=== PATIENT | male | born 1950 | race Caucasian/White ===

== ENCOUNTER 2016-12-01 03:08 | Emergency (ER) | payer MEDICARE ==
[~2016-12-01] VITALS: Ht 177.8 cm; Wt 116.8 kg
[~2016-12-01 03:08] MED LIST: CENTTAB47 PO; COUM10TA PO; COUM1TAB17 PO; COUM7.5T PO; HYDR25TAB PO; MILKSUS PO; MIRA3350 PO; NICO2GUM8 PO; PERC5TAB12 PO; SENO8.6T5 PO; TRAM50TA2 PO; TUMS500C PO; TYLE325T5 PO; VITA-110 PO; VITA100066 PO
[2016-12-01] MEDS ORDERED: FORT500T3 PO (03:22)
[2016-12-01] MEDS ORDERED: ATOR1TAB19 PO (03:22)
[2016-12-01] MEDS ORDERED: METOCLOPRAMIDE INJ 10MG/2ML VIAL (J2765) IV ONE (05:00)
[2016-12-01] MEDS ORDERED: MORPHINE 4 MG/ML 1ML SYRINGE IV ONE (05:00)
[2016-12-01 05:08] LABS: BASO % 0.6 % (0.0-1.0); EOS # 0.3 K/mm3 (0.0-0.50); EOS % 4.1 % (0.0-3.0); LARGE UNSTAINED CELL # 0.2 K/mm3 (0.0-0.4); LARGE UNSTAINED CELL % 2.1 % (0.0-4.0); LYMPH # 2.3 K/mm3 (1.5-4.5); LYMPH % 29.6 % (24.0-44.0); MEAN CORPUSCULAR HEMOGLOBIN 30.3 pg (27.0-33.0); MEAN CORPUSCULAR HGB CONC 35.8 g/dl (32.0-36.5); MEAN CORPUSCULAR VOLUME 84.6 fl (80.0-96.0); MONO # 0.4 K/mm3 (0.0-0.8); MONO % 5.5 % (0.0-5.0); NEUTROPHILS # 4.5 K/mm3 (1.8-7.7); NEUTROPHILS % 58.1 % (36.0-66.0); PLATELET COUNT, AUTOMATED 198 k/mm3 (150-450); RED CELL DISTRIBUTION WIDTH 12.4 % (11.5-14.5); WHITE BLOOD COUNT 7.8 K/mm3 (4.0-10.0)
[2016-12-01 05:25] LABS: ANION GAP 7 MEQ/L (8-16); BLOOD UREA NITROGEN 18 MG/DL (7-18); CALCIUM LEVEL 9.1 MG/DL (8.8-10.2); CARBON DIOXIDE LEVEL 29 MEQ/L (21-32); CHLORIDE LEVEL 104 MEQ/L (98-107); CREATININE FOR GFR 0.85 MG/DL (0.70-1.30); GLOMERULAR FILTRATION RATE > 60.0 (>49); GLUCOSE, FASTING 155 MG/DL (80-110); SODIUM LEVEL 140 MEQ/L (136-145)
[2016-12-01] MEDS ORDERED: GASTROGRAFIN SOLUTION 30ML (Q9963) PO ONE ×2 (05:25→05:55)
--- NOTE | 2016-12-01 07:10 | REPUSA ---
CLINICAL HISTORY: Abdominal pain. TECHNIQUE: Multiple axial, sagittal and coronal CT images were obtained through the abdomen and pelvi s without administration of IV contrast material. Patient ingested oral contrast. COMMENTS: The liver is moderately enlarged with decreased attenuation without mass or defect. There is no intra or extrahepatic biliary ductal dilatation. The spleen is normal. The gallbladder is within normal li mits. The pancreas is of normal contour and attenuation characteristics. There is no evidence of adre nal mass. Bilateral fullness of the collecting systems. Mild bilateral perinephric fat stranding. The kidneys are normal in size, shape and configuration. No renal or ureteral calculi are identified. There is mild bilateral perinephric fat stranding There is no evidence for appendicitis. There is no bowel wall thickening. No evidence for small or la rge bowel obstruction. There is no evidence of abdominal ascites or lymphadenopathy. There is no evidence of intrinsic or extrinsic bladder mass. There is no pelvic ascites or lymphadeno courtney. Mild prostatomegaly. Prostatic calcifications are noted. Images of the lung bases show no evidence of pleural or parenchymal mass. There are no pleural effusi ons. The bony structures are free of lytic or blastic lesions. Multilevel degenerative changes are seen in volving the thoracolumbar spine. Scattered calcifications are seen involving the aorta and major branches compatible with atherosclero sis. Bilateral fat containing inguinal hernias without incarceration. Fat containing umbilical hernia without incarceration. IMPRESSION: Mild bilateral fullness of the collecting systems. Mild bilateral perinephric fat stranding. Prostatic calcifications. Diffusely thickened bladder. Please evaluate to exclude an ascending urinary tract infection. Non-incarcerated inguinal hernias. Hepatomegaly with fatty infiltration. Thank you for your kind referral of this patient.
[2016-12-01 08:02] VITALS: BP 168/93
[2016-12-01] MEDS ORDERED: PERC5TAB12 PO ×2 (08:14→08:16)
[2016-12-08] MEDS ORDERED: ASPI1TAB PO (09:11)
[2016-12-08] MEDS ORDERED: TYLE500T78 PO (09:24)
[2016-12-18] MEDS ORDERED: NORCOTAB PO (12:50)
== END 2016-12-01 08:28 | disposition home or self-care (01) ==
LOC: M ED 03:08
DX: K40.90 Unilateral inguinal hernia, without obstruction or gangrene, not specified as recurrent (principal); I10 Essential (primary) hypertension; E78.5 Hyperlipidemia, unspecified; F17.210 Nicotine dependence, cigarettes, uncomplicated; Z79.01 Long term (current) use of anticoagulants; Z79.899 Other long term (current) drug therapy
CPT/HCPCS: 36415; 74176; 80048; 83605; 85025; 96374; 96375; 99284; J2765; Q9963

== ENCOUNTER 2016-12-17 08:26 | Day surgery (SDC) | payer MEDICARE ==
[~2016-12-17] VITALS: Ht 177.8 cm; Wt 116.1 kg
[~2016-12-17 08:26] MED LIST changes: +ASPI1TAB PO; +ATOR1TAB19 PO; +FORT500T3 PO; +TYLE500T78 PO
[2016-12-17] MEDS ORDERED: HumaLOG INSULIN (NovoLOG) PER UNIT SC ONE (09:30)
[2016-12-17] MEDS ORDERED: LIDOCAINE 1% SDV INJ 30 ML VIAL As Ordered ONE (09:41)
[2016-12-17] MEDS ORDERED: BUPIVACAINE HCL 0.25% 30 ML VIAL As Ordered ONE (09:41)
[2016-12-17] MEDS ORDERED: fentaNYL 100 MCG/2 ML INJECTION (J3010) As Ordered ONE ×2 (09:46→10:41)
[2016-12-17] MEDS ORDERED: MIDAZOLAM INJ 2 MG/2 ML VIAL (J2250) As Ordered ONE (09:46)
[2016-12-17] MEDS ORDERED: LIDOCAINE 2% INJ 100 MG/5 ML SDV (FOR ANES.) As Ordered ONE (10:50)
[2016-12-17] MEDS ORDERED: ROCURONIUM BROMIDE 50 MG/5 ML VIAL As Ordered ONE (10:50)
[2016-12-17] MEDS ORDERED: PROPOFOL 200 MG/20 ML VIAL As Ordered ONE (10:50)
[2016-12-17] MEDS ORDERED: dexameTHASONE 4 MG/ML 1ML VIAL (J1100) As Ordered ONE (10:51)
[2016-12-17] MEDS ORDERED: KETOROLAC 60 MG/2 ML VIAL (J1885) As Ordered ONE (10:51)
[2016-12-17] MEDS ORDERED: ONDANSETRON 4MG/2ML VIAL (J2405) As Ordered ONE (10:51)
[2016-12-17] MEDS ORDERED: HYDROmorphone HCL 2 MG/ML 1ML VIAL (J1170) As Ordered ONE (12:06)
[2016-12-17 13:59] VITALS: BP 146/85
[2016-12-17] MEDS ORDERED: METOCLOPRAMIDE INJ 10MG/2ML VIAL (J2765) IV PRN (14:00)
[2016-12-17] MEDS ORDERED: ONDANSETRON 4MG/2ML VIAL (J2405) IV PRN ×2 (14:00)
[2016-12-17] MEDS ORDERED: MEPERIDINE INJ 25 MG/ML VIAL (J2175) IV PRN (14:00)
[2016-12-17] MEDS ORDERED: NORCO, ANEXSIA 5/325MG TABLET (HYDROcodone/ACETAMINOPHEN) PO PRN ×2 (14:00)
[2016-12-17] MEDS ORDERED: LR 1,000 ML IV SCH (14:00)
[2016-12-17] MEDS ORDERED: fentaNYL 100 MCG/2 ML INJECTION (J3010) IV PRN (14:00)
[2016-12-17] MEDS ORDERED: KETOROLAC 30 MG/ML VIAL (J1885) IV PRN (14:00)
[2016-12-17] MEDS ORDERED: PERCOCET 5MG/325MG TAB PO PRN (14:00)
[2016-12-18] MEDS ORDERED: NORCOTAB PO (12:50)
--- NOTE | 2017-02-11 11:19 | ROOPDOC ---
[facility] Report Of Operation Report of Operation DATE OF PROCEDURE: 12/17/2016 PREPROCEDURE DIAGNOSES: Right inguinal hernia. POSTPROCEDURE DIAGNOSES: Right indirect inguinal hernia, large cord lipoma. PROCEDURE: Robotic-assisted laparoscopic right inguinal hernia repair (aubrey). SURGEON: Humza Shaw MD MINERAL MIXER: ANESTHESIA: Gen. anesthesia. ESTIMATED BLOOD LOSS: Approximately 10 mL. COMPLICATIONS: None. REMARKS: 66-year-old gentleman with pain and discomfort associated with a right inguinal hernia. After discussion of his options for repair, he is brought to the OR for laparoscopic repair in a transabdominal preperitoneal approach with the help of the da Wilbert robot platform PROCEDURE NOTE: Patient was seen in the emergency room with pain in his right groin in November after lifting a heavy object. He was seen in the clinic subsequently and was noted to have a tender right indirect inguinal hernia. His brought to the OR for repair of his symptomatic right inguinal hernia. DESCRIPTION OF PROCEDURE: Patient received 2 g of Ancef IV preoperatively for wound prophylaxis. Patient was brought to the operating room, placed supine on the operating table. Compression boots placed in both lower extremities for DVT prophylaxis. After adequate general anesthesia started, he was placed on a lithotomy position. A jaimes catheter placed without difficulty. His abdomen and groin/pelvic area then prepped and draped in the usual sterile fashion. After a surgical timeout we began our surgery. Entry to the abdomen done through a small incision above the umbilical skin cleft. A Veress needle is inserted on a controlled fashion. CO2 insufflation started to pressure 15 mmHg. Using the same incision a 5 mm Visiport was then placed under direct vision of laparoscope. The insertion site was inspected for injury and none was found. Patient was then positioned on a Trendelenburg position with the symptomatic (left) side tilted upwards for adequate view of the hernia defect. 2 working ports placed to the right and left of the umbilicus along the same line. The da Wilbert robot to our was then positioned in between the patient's legs and the trochars doctor onto the robot. I then unscrubbed and to control of the camera and the laparoscopic instruments at the surgeon's console. There was a small peritoneal opening at the indirect hernia space lateral to the inferior epigastric artery on the right side. No evidence for hernia is found in the left side. The peritoneum above the inguinal hernia defect was opened up about 3 cm above the superior edge of the fascial defect of the inguinal hernia starting at the medial umbilical ligament going in an arc-like fashion laterally towards the level of the anterior superior iliac spine. This was then dissected mostly bluntly away from the abdominal wall. On approaching the inguinal hernia defect the hernia sac was pulled back into the preperitoneal space and carefully dissected off the testicular vessels and vas deferens. He has a large and redundant inguinal hernia sac which was fully reduced back into the abdomen. A large sized lipoma was pulled out from within the inguinal canal and dissected free from the rest of the structures. The vas deferens as well as testicular vessels were promptly identified and from the hernia sac. After freeing up the hernia sac we continued dissecting it off inferiorly to from the vas deferens and testicular vessels. The preperitoneal space was dissected medially to expose the pubic tubercle up towards the symphysis pubis. The remaining areolar fibers were bluntly dissected away from the abdominal wall to create space for the mesh. After fully dissecting the preperitoneal space, we checked for adequate hemostasis. A large sized 3-D Max light mesh was chosen. This was placed through the laparoscopic port into the abdomen. This was positioned in the preperitoneal space abutting the abdominal wall to adequately cover the indirect as well as direct hernia space. I made sure the mesh was laying flat on the abdominal wall. This was secured onto the pubic tubercle with a single stitch of 2-0 Vicryl. Again after checking for hemostasis the preperitoneal space was then closed by suturing the peritoneal incision using a running stitch of 2-0V LOC. The redundant sac was pexied by incorporating the excess peritoneum into our closure After surveying the repair site and the pelvis for injury and none was found. I scrubbed back in. The abdomen was deflated. All ports were removed. The port site incisions were closed with 4-0 Monocryl in a subcuticular fashion. Dermabond used for wound dressing. Patient was promptly awakened and extubated his Jaimes catheter removed and brought to recovery room stable . HUMZA SHAW MD Feb 11, 2017 11:19
== END 2016-12-17 14:45 | disposition home or self-care (01) ==
LOC: M SDC 08:26
PROVIDERS: ATTEND Surgery
DX: K40.90 Unilateral inguinal hernia, without obstruction or gangrene, not specified as recurrent (principal); D17.6 Benign lipomatous neoplasm of spermatic cord; I10 Essential (primary) hypertension; E78.00 Pure hypercholesterolemia, unspecified; E11.9 Type 2 diabetes mellitus without complications; K21.9 Gastro-esophageal reflux disease without esophagitis; M12.9 Arthropathy, unspecified; G47.33 Obstructive sleep apnea (adult) (pediatric); N40.0 Benign prostatic hyperplasia without lower urinary tract symptoms; Z79.899 Other long term (current) drug therapy; Z79.82 Long term (current) use of aspirin; Z96.1 Presence of intraocular lens; Z96.653 Presence of artificial knee joint, bilateral; Z72.0 Tobacco use
CPT/HCPCS: 49650; 88304; C1781; J0690; J1100; J1170; J1885; J2250; J2405; J3010

== ENCOUNTER 2018-01-24 08:53 | Inpatient (IN) | payer MEDICARE ==
[2018-01-24 09:27] LABS: BEDSIDE GLUCOSE 332 MG/DL (80-115)
[2018-01-24 09:45] LABS: BASO # 0.1 10^3/uL (0.0-0.2); BASO % 0.3 % (0.0-1.0); EOS # 0.6 10^3/uL (0.0-0.50); EOS % 3.1 % (0.0-3.0); HEMATOCRIT 38.3 % (42.0-52.0); HEMOGLOBIN 13.1 g/dl (13.5-17.5); IMMATURE GRANULOCYTE % 0.8 % (0-3.0); LYMPH # 1.2 10^3/uL (1.5-4.5); LYMPH % 6.5 % (24.0-44.0); MEAN CORPUSCULAR HEMOGLOBIN 27.8 pg (27.0-33.0); MEAN CORPUSCULAR HGB CONC 34.2 g/dl (32.0-36.5); MEAN CORPUSCULAR VOLUME 81.1 fl (80.0-96.0); MONO % 5.2 % (0.0-5.0); NEUTROPHILS # 15.4 10^3/uL (1.8-7.7); NEUTROPHILS % 84.1 % (36.0-66.0); PLATELET COUNT, AUTOMATED 408 10^3/uL (150-450); RED BLOOD COUNT 4.72 10^6/uL (4.30-6.10); WHITE BLOOD COUNT 18.3 10^3/uL (4.0-10.0)
[2018-01-24] MEDS ORDERED: ASPIRIN 81 MG CHEW TABLET PO (09:45)
[2018-01-24 09:58] LABS: PARTIAL THROMBOPLASTIN TIME 31.1 SECONDS (25.4-37.6); PROTHROMBIN TIME 14.3 SECONDS (12.1-14.4)
[2018-01-24 10:08] LABS: ALBUMIN 2.8 GM/DL (3.2-5.2); ALBUMIN/GLOBULIN RATIO 0.55 (1.00-1.93); ALKALINE PHOSPHATASE 90 U/L (45-117); ALT/SGPT 17 U/L (12-78); ANION GAP 8 MEQ/L (8-16); AST/SGOT 19 U/L (7-37); BILIRUBIN,DIRECT 0.1 MG/DL (0.0-0.2); BILIRUBIN,TOTAL 0.5 MG/DL (0.2-1.0); BLOOD UREA NITROGEN 11 MG/DL (7-18); CALCIUM LEVEL 7.9 MG/DL (8.8-10.2); CARBON DIOXIDE LEVEL 30 MEQ/L (21-32); CHLORIDE LEVEL 88 MEQ/L (98-107); CK-MB VALUE MASS < 1.0 NG/ML (<3.6); CPK CREATINE PHOSPHOKINASE 85 U/L (39-308); CREATININE FOR GFR 0.92 MG/DL (0.70-1.30); FREE T4 1.29 NG/DL (0.76-1.46); GLOMERULAR FILTRATION RATE > 60.0 (>49); GLUCOSE, FASTING 304 MG/DL (70-100); LIPASE 113 U/L (73-393); MB/CK RELATIVE INDEX 1.18 (< OR =4); POTASSIUM SERUM 3.3 MEQ/L (3.5-5.1); SODIUM LEVEL 126 MEQ/L (136-145); TOTAL PROTEIN 7.9 GM/DL (6.4-8.2); TROPONIN I < 0.02 NG/ML (< 0.10)
[2018-01-24] MEDS ORDERED: ISOVUE-370 76% 100ML VIAL (Q9967) As Ordered (11:55)
[2018-01-24 12:03] LABS: OSMOLALITY SERUM 282 MOSM/KG (280-301)
[2018-01-24] MEDS: POTASSIUM CHLORIDE 10 MEQ SR TABLET PO ×2 (12:31→15:55)
[2018-01-24] MEDS ORDERED: GLUCOSE 4 GM CHEW TABLET PO (14:30)
[2018-01-24] MEDS ORDERED: GLUCAGON FOR INJ 1 MG VIAL (J1610) SC (14:30)
[2018-01-24] MEDS ORDERED: DEXTROSE 50% 50 ML SYRINGE IV (14:30)
[2018-01-24] MEDS ORDERED: ONDANSETRON 4MG/2ML VIAL (J2405) IV (14:30)
[2018-01-24] MEDS: cefTRIAXone SOD 1 GM in D5W MINI-BAG PLUS 50 ML IV (14:49)
[2018-01-24] MEDS: ACETAMINOPHEN TAB 650MG DOSE (2X325MG) PO ×2 (14:49→22:52)
[2018-01-24] MEDS: KCL 20MEQ in NS 1000ML 1,000 ML IV (14:50)
[2018-01-24] MEDS: IPRATROPIUM 0.5MG/ALBUTEROL 2.5MG INH SOL UD 3ML (DUONEB)(J7620) NEB ×2 (15:10→20:00)
[2018-01-24 15:12] LABS: ESTIMATED AVERAGE GLUCOSE 243 MG/DL (60-110); HEMOGLOBIN A1c 10.1 %
[2018-01-24] MEDS: AZITHROMYCIN INJ 500 MG, VIAL MATE ADAPTER 1 EACH in D5W 250 ML IV ×2 (15:55→18:15)
[2018-01-24] MEDS: ENOXAPARIN 100MG/1ML SYRINGE (J1650) SC (15:56)
[2018-01-24 17:03] LABS: ANION GAP 11 MEQ/L (8-16); BLOOD UREA NITROGEN 10 MG/DL (7-18); CARBON DIOXIDE LEVEL 29 MEQ/L (21-32); CHLORIDE LEVEL 91 MEQ/L (98-107); CK-MB VALUE MASS < 1.0 NG/ML (<3.6); CPK CREATINE PHOSPHOKINASE 65 U/L (39-308); CREATININE FOR GFR 0.82 MG/DL (0.70-1.30); GLOMERULAR FILTRATION RATE > 60.0 (>49); GLUCOSE, FASTING 296 MG/DL (70-100); MB/CK RELATIVE INDEX 1.54 (< OR =4); POTASSIUM SERUM 3.7 MEQ/L (3.5-5.1); SODIUM LEVEL 131 MEQ/L (136-145); TROPONIN I < 0.02 NG/ML (< 0.10)
[2018-01-24 18:02] LABS: BEDSIDE GLUCOSE 324 MG/DL (80-115)
[2018-01-24] MEDS: ASPIRIN 81 MG ENTERIC TAB PO (18:17)
[2018-01-24] MEDS: HumaLOG INSULIN (NovoLOG) PER UNIT SC ×2 (18:17→21:12)
[2018-01-24] MEDS: PERCOCET 5MG/325MG TAB PO (18:24)
[2018-01-24 20:52] LABS: BEDSIDE GLUCOSE 320 MG/DL (80-115)
[2018-01-24] MEDS: LEVEMIR (INSULIN DETEMIR) 1 UNITS/0.01ML SC (21:13)
[2018-01-24] MEDS: guaiFENesin ER 600 MG TAB PO (21:13)
[2018-01-24] MEDS: SENOKOT S TAB PO (21:13)
[2018-01-24 21:24] LABS: OSMOLALITY URINE 422 MOSM/KG (500-800)
[2018-01-24 21:27] LABS: SODIUM,RANDOM URINE 10 MEQ/L
[2018-01-24 21:28] LABS: CHLORIDE,RANDOM URINE 13 MEQ/L; POTASSIUM RANDOM URINE 27.9 MEQ/L; TOTAL PROTEIN,RANDOM URINE 42.1 MG/DL (0.0-12.0)
[2018-01-24 21:28] LABS: URIC ACID,RANDOM URINE 47.7 MG/DL
[2018-01-24 21:59] LABS: ANION GAP 9 MEQ/L (8-16); BLOOD UREA NITROGEN 10 MG/DL (7-18); CALCIUM LEVEL 8.3 MG/DL (8.8-10.2); CARBON DIOXIDE LEVEL 29 MEQ/L (21-32); CHLORIDE LEVEL 92 MEQ/L (98-107); CK-MB VALUE MASS < 1.0 NG/ML (<3.6); CPK CREATINE PHOSPHOKINASE 46 U/L (39-308); GLOMERULAR FILTRATION RATE > 60.0 (>49); GLUCOSE, FASTING 303 MG/DL (70-100); MB/CK RELATIVE INDEX 2.17 (< OR =4); POTASSIUM SERUM 3.3 MEQ/L (3.5-5.1); SODIUM LEVEL 130 MEQ/L (136-145); TROPONIN I < 0.02 NG/ML (< 0.10)
[2018-01-24] MEDS: MORPHINE 4 MG/ML 1ML VIAL/SYRINGE (J2270) IV (22:02)
[2018-01-24] MEDS: ATORVASTATIN 10 MG TAB PO (22:52)
[2018-01-25] MEDS: KCL 20MEQ in NS 1000ML 1,000 ML IV ×3 (01:00→22:22)
[2018-01-25] MEDS: PERCOCET 5MG/325MG TAB PO ×6 (01:55→23:20)
[2018-01-25] MEDS: IPRATROPIUM 0.5MG/ALBUTEROL 2.5MG INH SOL UD 3ML (DUONEB)(J7620) NEB ×5 (02:00→20:14)
[2018-01-25] MEDS: MORPHINE 4 MG/ML 1ML VIAL/SYRINGE (J2270) IV ×2 (04:14→06:49)
[2018-01-25] MEDS: ENOXAPARIN 100MG/1ML SYRINGE (J1650) SC (05:10)
[2018-01-25 05:27] LABS: HEMOGLOBIN 12.1 g/dl (13.5-17.5); MEAN CORPUSCULAR HEMOGLOBIN 27.1 pg (27.0-33.0); MEAN CORPUSCULAR HGB CONC 32.7 g/dl (32.0-36.5); PLATELET COUNT, AUTOMATED 382 10^3/uL (150-450); RED BLOOD COUNT 4.46 10^6/uL (4.30-6.10); RED CELL DISTRIBUTION WIDTH 12.2 % (11.5-14.5); WHITE BLOOD COUNT 18.7 10^3/uL (4.0-10.0)
[2018-01-25 06:02] LABS: ANION GAP 7 MEQ/L (8-16); BLOOD UREA NITROGEN 10 MG/DL (7-18); CALCIUM LEVEL 7.8 MG/DL (8.8-10.2); CARBON DIOXIDE LEVEL 28 MEQ/L (21-32); CHLORIDE LEVEL 96 MEQ/L (98-107); CREATININE FOR GFR 0.67 MG/DL (0.70-1.30); GLOMERULAR FILTRATION RATE > 60.0 (>49); GLUCOSE, FASTING 252 MG/DL (70-100); MAGNESIUM LEVEL 1.8 MG/DL (1.8-2.4); POTASSIUM SERUM 3.4 MEQ/L (3.5-5.1); SODIUM LEVEL 131 MEQ/L (136-145)
[2018-01-25] MEDS: HumaLOG INSULIN (NovoLOG) PER UNIT SC ×4 (08:54→20:47)
[2018-01-25] MEDS: SENOKOT S TAB PO ×2 (08:55→20:46)
[2018-01-25] MEDS: ASPIRIN 81 MG ENTERIC TAB PO (08:55)
[2018-01-25] MEDS: guaiFENesin ER 600 MG TAB PO ×2 (08:56→20:46)
[2018-01-25] MEDS: LISINOPRIL 10 MG TAB PO (10:10)
[2018-01-25 11:55] LABS: BEDSIDE GLUCOSE 245 MG/DL (80-115)
[2018-01-25] MEDS: cefTRIAXone SOD 2 GM in D5W MINI-BAG PLUS 50 ML IV (15:28)
[2018-01-25] MEDS: ACETAMINOPHEN TAB 650MG DOSE (2X325MG) PO ×2 (15:32→20:46)
[2018-01-25 16:53] LABS: BEDSIDE GLUCOSE 272 MG/DL (80-115)
[2018-01-25] MEDS: AZITHROMYCIN INJ 500 MG, VIAL MATE ADAPTER 1 EACH in D5W 250 ML IV (17:43)
[2018-01-25 20:03] LABS: BEDSIDE GLUCOSE 262 MG/DL (80-115)
[2018-01-25] MEDS: ATORVASTATIN 10 MG TAB PO (20:46)
[2018-01-25] MEDS: LEVEMIR (INSULIN DETEMIR) 1 UNITS/0.01ML SC (20:47)
[2018-01-26] MEDS: IPRATROPIUM 0.5MG/ALBUTEROL 2.5MG INH SOL UD 3ML (DUONEB)(J7620) NEB ×4 (02:24→20:45)
[2018-01-26] MEDS: PERCOCET 5MG/325MG TAB PO (03:48)
[2018-01-26 06:04] LABS: HEMATOCRIT 33.1 % (42.0-52.0); HEMOGLOBIN 10.9 g/dl (13.5-17.5); MEAN CORPUSCULAR HEMOGLOBIN 27.6 pg (27.0-33.0); MEAN CORPUSCULAR HGB CONC 32.9 g/dl (32.0-36.5); MEAN CORPUSCULAR VOLUME 83.8 fl (80.0-96.0); PLATELET COUNT, AUTOMATED 361 10^3/uL (150-450); RED BLOOD COUNT 3.95 10^6/uL (4.30-6.10); RED CELL DISTRIBUTION WIDTH 12.5 % (11.5-14.5); WHITE BLOOD COUNT 17.7 10^3/uL (4.0-10.0)
[2018-01-26 06:41] LABS: ANION GAP 10 MEQ/L (8-16); BLOOD UREA NITROGEN 10 MG/DL (7-18); CALCIUM LEVEL 7.4 MG/DL (8.8-10.2); CARBON DIOXIDE LEVEL 28 MEQ/L (21-32); CHLORIDE LEVEL 97 MEQ/L (98-107); CREATININE FOR GFR 0.67 MG/DL (0.70-1.30); GLOMERULAR FILTRATION RATE > 60.0 (>49); GLUCOSE, FASTING 205 MG/DL (70-100); MAGNESIUM LEVEL 1.9 MG/DL (1.8-2.4); POTASSIUM SERUM 3.4 MEQ/L (3.5-5.1); SODIUM LEVEL 135 MEQ/L (136-145)
[2018-01-26] MEDS: ACETAMINOPHEN TAB 650MG DOSE (2X325MG) PO ×2 (06:52→15:43)
[2018-01-26] MEDS: HumaLOG INSULIN (NovoLOG) PER UNIT SC ×4 (08:11→19:41)
[2018-01-26] MEDS: ASPIRIN 81 MG ENTERIC TAB PO (08:26)
[2018-01-26] MEDS: KCL 20MEQ in NS 1000ML 1,000 ML IV ×2 (08:26→19:35)
[2018-01-26] MEDS: LISINOPRIL 10 MG TAB PO (08:27)
[2018-01-26] MEDS: SENOKOT S TAB PO ×2 (08:27→19:34)
[2018-01-26] MEDS: guaiFENesin ER 600 MG TAB PO ×2 (08:27→19:34)
[2018-01-26] MEDS: ENOXAPARIN 40 MG/0.4 ML SYRINGE (J1650) SC (08:36)
[2018-01-26] MEDS: KETOROLAC TROMETHAMINE 10 MG TAB PO ×2 (10:44→19:35)
[2018-01-26] MEDS: MIRALAX *UNIT DOSE* 17GM PACKET PO (11:01)
[2018-01-26 11:26] LABS: BEDSIDE GLUCOSE 263 MG/DL (80-115)
[2018-01-26] MEDS: cefTRIAXone SOD 2 GM in D5W MINI-BAG PLUS 50 ML IV (15:00)
[2018-01-26 16:47] LABS: BEDSIDE GLUCOSE 249 MG/DL (80-115)
[2018-01-26] MEDS: PREVNAR 13 VACCINE SYRINGE (CPT CODE:90670) IM (17:01)
[2018-01-26] MEDS: AZITHROMYCIN INJ 500 MG, VIAL MATE ADAPTER 1 EACH in D5W 250 ML IV (17:15)
[2018-01-26] MEDS: ATORVASTATIN 10 MG TAB PO (19:34)
[2018-01-26] MEDS: LEVEMIR (INSULIN DETEMIR) 1 UNITS/0.01ML SC (19:35)
[2018-01-26 20:19] LABS: BEDSIDE GLUCOSE 261 MG/DL (80-115)
[2018-01-26] MEDS: methylPREDNISolone INJ 40 MG/1 ML VIAL (J2920) IV (23:50)
[2018-01-27] MEDS: ACETAMINOPHEN TAB 650MG DOSE (2X325MG) PO ×2 (00:05→09:34)
[2018-01-27] MEDS: IPRATROPIUM 0.5MG/ALBUTEROL 2.5MG INH SOL UD 3ML (DUONEB)(J7620) NEB (02:00)
[2018-01-27] MEDS: hydrOXYzine 25 MG TAB PO (02:22)
[2018-01-27 05:45] LABS: HEMATOCRIT 34.5 % (42.0-52.0); MEAN CORPUSCULAR HEMOGLOBIN 27.4 pg (27.0-33.0); MEAN CORPUSCULAR HGB CONC 31.9 g/dl (32.0-36.5); PLATELET COUNT, AUTOMATED 363 10^3/uL (150-450); RED BLOOD COUNT 4.01 10^6/uL (4.30-6.10); RED CELL DISTRIBUTION WIDTH 12.6 % (11.5-14.5); WHITE BLOOD COUNT 13.7 10^3/uL (4.0-10.0)
[2018-01-27 06:12] LABS: ANION GAP 6 MEQ/L (8-16); BLOOD UREA NITROGEN 11 MG/DL (7-18); CALCIUM LEVEL 7.6 MG/DL (8.8-10.2); CARBON DIOXIDE LEVEL 29 MEQ/L (21-32); CHLORIDE LEVEL 103 MEQ/L (98-107); CREATININE FOR GFR 0.65 MG/DL (0.70-1.30); GLOMERULAR FILTRATION RATE > 60.0 (>49); GLUCOSE, FASTING 180 MG/DL (70-100); POTASSIUM SERUM 3.6 MEQ/L (3.5-5.1); SODIUM LEVEL 138 MEQ/L (136-145)
[2018-01-27] MEDS: KETOROLAC TROMETHAMINE 10 MG TAB PO ×2 (06:49→13:59)
[2018-01-27] MEDS: ALBUTEROL SULFATE 2.5 MG/0.5 ML INH NEB SOLN NEB ×3 (07:17→21:02)
[2018-01-27] MEDS ORDERED: SLF 3 ML SYR IV (09:00)
[2018-01-27] MEDS: ENOXAPARIN 40 MG/0.4 ML SYRINGE (J1650) SC (09:00)
[2018-01-27] MEDS: PREVNAR 13 VACCINE SYRINGE (CPT CODE:90670) IM (09:00)
[2018-01-27] MEDS: HumaLOG INSULIN (NovoLOG) PER UNIT SC ×4 (09:21→21:13)
[2018-01-27] MEDS: guaiFENesin ER 600 MG TAB PO ×2 (09:21→21:12)
[2018-01-27] MEDS: LISINOPRIL 10 MG TAB PO (09:22)
[2018-01-27] MEDS: SENOKOT S TAB PO ×2 (09:22→21:12)
[2018-01-27] MEDS: ASPIRIN 81 MG ENTERIC TAB PO (09:22)
[2018-01-27] MEDS: methylPREDNISolone INJ 40 MG/1 ML VIAL (J2920) IV (11:22)
[2018-01-27 11:44] LABS: BEDSIDE GLUCOSE 197 MG/DL (80-115)
[2018-01-27] MEDS: MOXIFLOXACIN HCL 400 MG in APPROPRIATE DILUENT 1 EA IV (12:42)
[2018-01-27] MEDS: BUDESONIDE 0.5 MG/2 ML INHALATION SUSPENSION INH ×2 (13:11→21:02)
[2018-01-27] MEDS ORDERED: IPRATROPIUM 0.5MG/ALBUTEROL 2.5MG INH SOL UD 3ML (DUONEB)(J7620) NEB (14:00)
[2018-01-27] MEDS ORDERED: KETOROLAC 30 MG/ML VIAL (J1885) IV (15:30)
[2018-01-27] MEDS: SLF 3 ML SYR IV ×2 (15:51→22:00)
[2018-01-27] MEDS: KETOROLAC 30 MG/ML VIAL (J1885) IV (15:51)
[2018-01-27 16:55] LABS: BEDSIDE GLUCOSE 291 MG/DL (80-115)
[2018-01-27 19:41] LABS: BEDSIDE GLUCOSE 318 MG/DL (80-115)
[2018-01-27] MEDS: ATORVASTATIN 10 MG TAB PO (21:12)
[2018-01-27] MEDS: LEVEMIR (INSULIN DETEMIR) 1 UNITS/0.01ML SC (21:13)
[2018-01-28] MEDS: predniSONE 20 MG TAB PO (00:24)
[2018-01-28] MEDS: ACETAMINOPHEN TAB 650MG DOSE (2X325MG) PO (01:52)
[2018-01-28] MEDS: ALBUTEROL SULFATE 2.5 MG/0.5 ML INH NEB SOLN NEB ×3 (02:00→13:34)
[2018-01-28] MEDS: SLF 3 ML SYR IV ×2 (05:00→13:10)
[2018-01-28 06:57] LABS: HEMATOCRIT 34.9 % (42.0-52.0); HEMOGLOBIN 11.1 g/dl (13.5-17.5); MEAN CORPUSCULAR HEMOGLOBIN 27.4 pg (27.0-33.0); MEAN CORPUSCULAR HGB CONC 31.8 g/dl (32.0-36.5); MEAN CORPUSCULAR VOLUME 86.2 fl (80.0-96.0); PLATELET COUNT, AUTOMATED 449 10^3/uL (150-450); RED BLOOD COUNT 4.05 10^6/uL (4.30-6.10); RED CELL DISTRIBUTION WIDTH 12.9 % (11.5-14.5); WHITE BLOOD COUNT 17.9 10^3/uL (4.0-10.0)
[2018-01-28] MEDS: BUDESONIDE 0.5 MG/2 ML INHALATION SUSPENSION INH (07:12)
[2018-01-28 07:26] LABS: ANION GAP 6 MEQ/L (8-16); BLOOD UREA NITROGEN 15 MG/DL (7-18); CARBON DIOXIDE LEVEL 29 MEQ/L (21-32); CHLORIDE LEVEL 102 MEQ/L (98-107); CREATININE FOR GFR 0.82 MG/DL (0.70-1.30); GLOMERULAR FILTRATION RATE > 60.0 (>49); GLUCOSE, FASTING 329 MG/DL (70-100); MAGNESIUM LEVEL 2.3 MG/DL (1.8-2.4); POTASSIUM SERUM 4.7 MEQ/L (3.5-5.1); SODIUM LEVEL 137 MEQ/L (136-145)
[2018-01-28] MEDS: HumuLIN (NovoLIN)70/30 INSULIN INJ PER UNIT SC (09:11)
[2018-01-28] MEDS: LISINOPRIL 10 MG TAB PO ×2 (09:12→11:34)
[2018-01-28] MEDS: guaiFENesin ER 600 MG TAB PO (09:12)
[2018-01-28] MEDS: ASPIRIN 81 MG ENTERIC TAB PO (09:12)
[2018-01-28] MEDS: ENOXAPARIN 40 MG/0.4 ML SYRINGE (J1650) SC (09:12)
[2018-01-28] MEDS: SENOKOT S TAB PO (09:12)
[2018-01-28] MEDS: MOXIFLOXACIN HCL 400 MG in APPROPRIATE DILUENT 1 EA IV (11:00)
[2018-01-28 11:58] LABS: BEDSIDE GLUCOSE 401 MG/DL (80-115)
[2018-01-28] MEDS: HumaLOG INSULIN (NovoLOG) PER UNIT SC (12:00)
[2018-01-28] MEDS: LevoFLOXacin 750 MG TABLET PO (12:26)
== END 2018-01-28 15:42 | disposition home or self-care (01) | DRG 640 ==
LOC: M MSPAV 01-27 17:07 → M ED 08:53 → M ED INP 14:21 → M PCU 22:36
DX: E87.1 Hypo-osmolality and hyponatremia (principal); J18.9 Pneumonia, unspecified organism; J44.1 Chronic obstructive pulmonary disease with (acute) exacerbation; E11.9 Type 2 diabetes mellitus without complications; E78.5 Hyperlipidemia, unspecified; E66.9 Obesity, unspecified; M19.90 Unspecified osteoarthritis, unspecified site; E87.6 Hypokalemia; I10 Essential (primary) hypertension; Z68.37 Body mass index [BMI] 37.0-37.9, adult; Z96.653 Presence of artificial knee joint, bilateral; Z87.891 Personal history of nicotine dependence; Z79.82 Long term (current) use of aspirin; Z79.84 Long term (current) use of oral hypoglycemic drugs; Z79.899 Other long term (current) drug therapy

== ENCOUNTER → 2018-09-28 | Outpatient (CLI) | payer MEDICARE ==
[~2018-09-28] MED LIST changes: +ACCUTES; -ASPI1TAB PO; +ASPI81TA26 PO; +BAYE325T12 PO; +BD P31MI3 SC; +HUMU70IN SC; +HYDR-2541 PO; +HYDR-3715 PO; -HYDR25TAB PO; +HYDR50TAB PO; +INSUDET SC; +LEVA750T7 PO; +LEVE1INJ5 SC; +LISI-538 PO; +LISI10TA4 PO; +METF10004 PO; +MILK120011 PO; -MILKSUS PO; +MOXI1TAB PO; +PRED10TA2 PO; +PROAAER10 INH; +VENTAER INH
--- NOTE | 2018-09-28 10:47 | REP ---
Scrotal ultrasound, stat request for right testicular pain: There are no comparisons. The right testis measures 4.4 x 2.43 point 0 cm. The left testis measures 4.1 x 2.4-0.1 cm. The testes are normal size. There are no testicular masses or cysts. There is vascular flow in both testes. The Doppler resistive index in the parenchymal arteries of the right testis is 0.54 left this is 0.77. The right epididymal head measures 6.6 mm and the left measures 6.5 mm. There are no epididymal head cysts. With color Doppler assessment there is no testicular or epididymal hyperemia on the right on the left. There are small bilateral hydroceles. Impression: There is vascular flow in both testes. There are no testicular masses or cysts. There are small bilateral hydroceles. No epididymal or testicular hyperemia. Electronically Signed by Jin German MD 09/28/2018 10:38 A
== END ==
LOC: M RAD 09:54
PROVIDERS: ATTEND Physician Assistant
DX: N43.3 Hydrocele, unspecified (principal); N50.811 Right testicular pain
CPT/HCPCS: 76870; 93976; G0463

== ENCOUNTER → 2020-09-16 | Outpatient (REF) | payer MEDICARE ==
[~2020-09-16] MED LIST changes: -COUM7.5T PO; +COUM7.5T6 PO; -LISI-538 PO; +LISI10TA22 PO; -LISI10TA4 PO; +LISI20TA33 PO
[2020-09-16 14:06] LABS: ALT/SGPT 31 U/L (12-78); BILIRUBIN,TOTAL 0.5 MG/DL (0.2-1.0); BLOOD UREA NITROGEN 24 MG/DL (7-18); CALCIUM LEVEL 8.9 MG/DL (8.8-10.2); CARBON DIOXIDE LEVEL 28 MEQ/L (21-32); CHLORIDE LEVEL 93 MEQ/L (98-107); CHOLESTEROL LEVEL 142 MG/DL (<200); CHOLESTEROL RISK RATIO 3.944 (<5); CREATININE FOR GFR 1.24 MG/DL (0.70-1.30); GLOMERULAR FILTRATION RATE > 60.0 (>42); GLUCOSE, FASTING 464 MG/DL (70-100); HDL CHOLESTEROL 36 MG/DL (>40); NON-HDL-C 106 MG/DL; POTASSIUM SERUM 4.5 MEQ/L (3.5-5.1); SODIUM LEVEL 129 MEQ/L (136-145); TOTAL PROTEIN 7.6 GM/DL (6.4-8.2); TRIGLYCERIDES LEVEL 410 MG/DL (<150)
[2020-09-16 14:43] LABS: HEMOGLOBIN A1c 11.5 %
== END ==
LOC: M SFHCADAM 10:59
PROVIDERS: ATTEND Physician Assistant
DX: E78.2 Mixed hyperlipidemia (principal); I10 Essential (primary) hypertension; E11.9 Type 2 diabetes mellitus without complications; F17.200 Nicotine dependence, unspecified, uncomplicated
CPT/HCPCS: 80053; 80061; 83036; G0463

== ENCOUNTER → 2021-03-16 | Outpatient (REF) | payer MEDICARE ==
[2021-03-16 18:35] LABS: HEMOGLOBIN A1c 11.6 %
[2021-03-16 18:56] LABS: ALBUMIN 3.9 GM/DL (3.2-5.2); ALT/SGPT 29 U/L (12-78); BILIRUBIN,TOTAL 0.5 MG/DL (0.2-1.0); BLOOD UREA NITROGEN 13 MG/DL (7-18); CALCIUM LEVEL 8.8 MG/DL (8.8-10.2); CARBON DIOXIDE LEVEL 26 MEQ/L (21-32); CHLORIDE LEVEL 102 MEQ/L (98-107); CHOLESTEROL LEVEL 190 MG/DL (<200); CHOLESTEROL RISK RATIO 5.588 (<5); CREATININE FOR GFR 0.92 MG/DL (0.70-1.30); GLOMERULAR FILTRATION RATE > 60.0 (>42); GLUCOSE, FASTING 370 MG/DL (70-100); HDL CHOLESTEROL 34 MG/DL (>40); NON-HDL-C 156 MG/DL; POTASSIUM SERUM 4.3 MEQ/L (3.5-5.1); SODIUM LEVEL 135 MEQ/L (136-145); TOTAL PROTEIN 7.5 GM/DL (6.4-8.2); TRIGLYCERIDES LEVEL 531 MG/DL (<150)
== END ==
LOC: M SFHCADAM 13:43
PROVIDERS: ATTEND Physician Assistant
DX: E78.2 Mixed hyperlipidemia (principal); I10 Essential (primary) hypertension; E11.9 Type 2 diabetes mellitus without complications

== ENCOUNTER → 2021-07-21 | Outpatient (REF) | payer MEDICARE ==
[2021-07-21 12:54] LABS: ALBUMIN 3.6 GM/DL (3.2-5.2); ALT/SGPT 21 U/L (12-78); BILIRUBIN,TOTAL 0.5 MG/DL (0.2-1.0); BLOOD UREA NITROGEN 18 MG/DL (7-18); CALCIUM LEVEL 8.9 MG/DL (8.8-10.2); CARBON DIOXIDE LEVEL 30 MEQ/L (21-32); CHLORIDE LEVEL 99 MEQ/L (98-107); CHOLESTEROL LEVEL 167 MG/DL (<200); CHOLESTEROL RISK RATIO 5.387 (<5); CREATININE FOR GFR 0.92 MG/DL (0.70-1.30); GLOMERULAR FILTRATION RATE > 60.0 (>42); GLUCOSE, FASTING 398 MG/DL (70-100); HDL CHOLESTEROL 31 MG/DL (>40); NON-HDL-C 136 MG/DL; POTASSIUM SERUM 4.3 MEQ/L (3.5-5.1); SODIUM LEVEL 134 MEQ/L (136-145); TOTAL PROTEIN 7.4 GM/DL (6.4-8.2); TRIGLYCERIDES LEVEL 457 MG/DL (<150)
[2021-07-21 13:17] LABS: HEMOGLOBIN A1c 12.4 %
== END ==
LOC: M SFHCADAM 08:26
PROVIDERS: ATTEND Physician Assistant
DX: I10 Essential (primary) hypertension (principal); E78.2 Mixed hyperlipidemia; E11.9 Type 2 diabetes mellitus without complications

== ENCOUNTER → 2021-11-11 | Outpatient (REF) | payer MEDICARE ==
[2021-11-11 12:52] LABS: HEMATOCRIT 41.6 % (42.0-52.0); HEMOGLOBIN 13.8 g/dl (13.5-17.5); MEAN CORPUSCULAR HEMOGLOBIN 28.4 pg (27.0-33.0); MEAN CORPUSCULAR HGB CONC 33.2 g/dl (32.0-36.5); MEAN CORPUSCULAR VOLUME 85.6 fl (80.0-96.0); PLATELET COUNT, AUTOMATED 291 10^3/uL (150-450); RED BLOOD COUNT 4.86 10^6/uL (4.30-6.10); WHITE BLOOD COUNT 8.2 10^3/uL (4.0-10.0)
[2021-11-11 13:12] LABS: HEMOGLOBIN A1c 10.2 %
[2021-11-11 14:18] LABS: ALBUMIN 3.6 GM/DL (3.2-5.2); ALT/SGPT 29 U/L (12-78); BILIRUBIN,TOTAL 0.5 MG/DL (0.2-1.0); BLOOD UREA NITROGEN 10 MG/DL (7-18); CALCIUM LEVEL 8.6 MG/DL (8.8-10.2); CARBON DIOXIDE LEVEL 27 MEQ/L (21-32); CHLORIDE LEVEL 99 MEQ/L (98-107); CHOLESTEROL LEVEL 151 MG/DL (<200); CHOLESTEROL RISK RATIO 5.033 (<5); CREATININE FOR GFR 0.77 MG/DL (0.70-1.30); FREE T4 0.93 NG/DL (0.76-1.46); GLOMERULAR FILTRATION RATE > 60.0 (>42); GLUCOSE, FASTING 266 MG/DL (70-100); HDL CHOLESTEROL 30 MG/DL (>40); LDL CHOLESTEROL 56 MG/DL (<100); NON-HDL-C 121 MG/DL; POTASSIUM SERUM 4.4 MEQ/L (3.5-5.1); SODIUM LEVEL 133 MEQ/L (136-145); TOTAL PROTEIN 7.2 GM/DL (6.4-8.2); TRIGLYCERIDES LEVEL 324 MG/DL (<150)
[2021-11-11 14:44] LABS: FOLATE 9.8 NG/ML (>5.4); VITAMIN B12 LEVEL 223 PG/ML (247-911)
== END ==
LOC: M SFHCADAM 10:54
PROVIDERS: ATTEND Family Medicine
DX: I10 Essential (primary) hypertension (principal); E78.2 Mixed hyperlipidemia; G47.33 Obstructive sleep apnea (adult) (pediatric); E11.65 Type 2 diabetes mellitus with hyperglycemia; Z12.5 Encounter for screening for malignant neoplasm of prostate; Z79.899 Other long term (current) drug therapy
CPT/HCPCS: 80053; 80061; 82607; 82746; 83036; 84439; 84443; 85027; G0103

== ENCOUNTER → 2022-04-15 | Outpatient (REF) | payer MEDICARE | LOC: M SFHCADAM 10:52 | PROVIDERS: ATTEND Family Medicine | DX: Z00.00 Encounter for general adult medical examination without abnormal findings (principal); E53.8 Deficiency of other specified B group vitamins; E11.65 Type 2 diabetes mellitus with hyperglycemia; Z53.9 Procedure and treatment not carried out, unspecified reason ==

== ENCOUNTER 2022-11-12 11:13 | Emergency (ER) | payer MEDICARE ==
[~2022-11-12] VITALS: Ht 175.3 cm; Wt 92.4 kg
[~2022-11-12 11:13] MED LIST changes: +INSU100I6 SC; -LEVE1INJ5 SC
[2022-11-12 12:18] LABS: BASO # 0.1 10^3/uL (0.0-0.2); BASO % 0.4 % (0.0-1.0); EOS # 0.2 10^3/uL (0.0-0.5); EOS % 1.3 % (0.0-3.0); HEMATOCRIT 35.9 % (42.0-52.0); HEMOGLOBIN 12.4 g/dl (13.5-17.5); LYMPH # 1.9 10^3/uL (1.5-5.0); LYMPH % 15.6 % (24.0-44.0); MEAN CORPUSCULAR HEMOGLOBIN 28.6 pg (27.0-33.0); MEAN CORPUSCULAR HGB CONC 34.5 g/dl (32.0-36.5); MEAN CORPUSCULAR VOLUME 82.7 fl (80.0-96.0); MONO % 8.4 % (2.0-8.0); NEUTROPHILS # 8.8 10^3/uL (1.5-8.5); NEUTROPHILS % 73.8 % (36.0-66.0); PLATELET COUNT, AUTOMATED 266 10^3/uL (150-450); RED BLOOD COUNT 4.34 10^6/uL (4.30-6.10)
[2022-11-12] MEDS ORDERED: ISOVUE-370 76% 100ML VIAL As Ordered ONE (12:36)
[2022-11-12 13:12] LABS: LIPASE 32 U/L (12-53)
[2022-11-12 13:14] LABS: ALBUMIN 3.2 G/DL (3.2-5.2); ALKALINE PHOSPHATASE 77 U/L (46-116); ALT/SGPT < 9 U/L (7.0-40); AST/SGOT < 8 U/L (<34); BILIRUBIN,DIRECT 0.3 MG/DL (<0.4); BILIRUBIN,TOTAL 0.7 MG/DL (0.3-1.2); TOTAL PROTEIN 6.4 G/DL (5.7-8.2)
[2022-11-12 13:15] LABS: CK-MB VALUE MASS < 1.0 NG/ML (<3.6)
[2022-11-12 13:18] LABS: FREE T4 1.03 NG/DL (0.89-1.76); THYROID STIMULATING HORMONE 2.615 uIU/ML (0.55-4.78)
[2022-11-12 13:20] LABS: CPK CREATINE PHOSPHOKINASE 55 U/L (46-171); MB/CK RELATIVE INDEX 1.81 (< OR =4)
[2022-11-12 13:20] LABS: RSV AMPLIFICATION NEGATIVE (NEGATIVE)
[2022-11-12 14:21] LABS: CK-MB VALUE MASS < 1.0 NG/ML (<3.6)
[2022-11-12 14:27] LABS: CPK CREATINE PHOSPHOKINASE 53 U/L (46-171); MB/CK RELATIVE INDEX 1.88 (< OR =4)
[2022-11-12 14:58] VITALS: O2SAT 96
[2022-11-12 15:04] VITALS: BP 160/97; TEMP 98.2
== END 2022-11-12 15:15 | disposition home or self-care (01) ==
LOC: EDBD 11:13 → M ED 11:13
DX: R07.9 Chest pain, unspecified (principal); E11.9 Type 2 diabetes mellitus without complications; I10 Essential (primary) hypertension; G47.30 Sleep apnea, unspecified; F32.A Depression, unspecified; F17.200 Nicotine dependence, unspecified, uncomplicated; Z79.899 Other long term (current) drug therapy; Z79.51 Long term (current) use of inhaled steroids; Z79.84 Long term (current) use of oral hypoglycemic drugs; Z79.82 Long term (current) use of aspirin; Z79.4 Long term (current) use of insulin
CPT/HCPCS: 36415; 71045; 71275; 80047; 80076; 82550; 82553; 83690; 83880; 84439; 84443; 84484; 85025; 87631; 93005; 93041; 94760; 99285; Q9967

== ENCOUNTER → 2022-12-16 | Outpatient (REF) | payer MEDICARE ==
[2022-12-16 20:17] LABS: HEMATOCRIT 42.9 % (42.0-52.0); HEMOGLOBIN 14.1 g/dl (13.5-17.5); MEAN CORPUSCULAR HEMOGLOBIN 28.9 pg (27.0-33.0); MEAN CORPUSCULAR HGB CONC 32.9 g/dl (32.0-36.5); MEAN CORPUSCULAR VOLUME 87.9 fl (80.0-96.0); PLATELET COUNT, AUTOMATED 275 10^3/uL (150-450); RED BLOOD COUNT 4.88 10^6/uL (4.30-6.10); WHITE BLOOD COUNT 10.4 10^3/uL (4.0-10.0)
[2022-12-16 20:44] LABS: CREATININE, URINE 37.9 MG/DL
[2022-12-16 20:45] LABS: MAU/CREAT RATIO 7.9 MCG/MG (0.0-30.0)
[2022-12-16 20:46] LABS: ALBUMIN 3.7 G/DL (3.2-5.2); ALKALINE PHOSPHATASE 87 U/L (46-116); ALT/SGPT 13 U/L (7.0-40); AST/SGOT 13 U/L (<34); BILIRUBIN,TOTAL 0.4 MG/DL (0.3-1.2); BLOOD UREA NITROGEN 11 MG/DL (9-23); CALCIUM LEVEL 8.6 MG/DL (8.3-10.6); CARBON DIOXIDE LEVEL 31 MMOL/L (20-31); CHLORIDE LEVEL 105 MMOL/L (98-107); CHOLESTEROL LEVEL 151 MG/DL (<200); CHOLESTEROL RISK RATIO 5.18 (<5); CREATININE FOR GFR 0.74 MG/DL (0.70-1.30); GLOMERULAR FILTRATION RATE > 60.0 (>42); GLUCOSE, FASTING 145 MG/DL (74-106); HDL CHOLESTEROL 29.1 MG/DL (>40); LDL CHOLESTEROL 63.5 MG/DL (<100); NON-HDL-C 121.9 MG/DL; POTASSIUM SERUM 4.4 MMOL/L (3.5-5.1); SODIUM LEVEL 140 MMOL/L (136-145); TOTAL PROTEIN 7.1 G/DL (5.7-8.2); TRIGLYCERIDES LEVEL 292 MG/DL (<150)
[2022-12-16 20:48] LABS: FOLATE 7.78 NG/ML (>5.4)
[2022-12-16 20:49] LABS: FREE T4 1.06 NG/DL (0.89-1.76); THYROID STIMULATING HORMONE 2.856 uIU/ML (0.55-4.78)
[2022-12-16 20:59] LABS: HEMOGLOBIN A1c 6.4 % (4.0-6.0)
[2022-12-16 22:37] LABS: VITAMIN B12 LEVEL 202 PG/ML (211-911)
== END ==
LOC: M SFHCADAM 14:57
PROVIDERS: ATTEND Family Medicine
DX: E11.65 Type 2 diabetes mellitus with hyperglycemia (principal); E78.2 Mixed hyperlipidemia; E53.8 Deficiency of other specified B group vitamins

== ENCOUNTER → 2023-01-26 | Outpatient (REF) | payer MEDICARE ==
[2023-01-26 14:00] LABS: HEMATOCRIT 39.5 % (42.0-52.0); MEAN CORPUSCULAR HEMOGLOBIN 28.4 pg (27.0-33.0); MEAN CORPUSCULAR HGB CONC 32.9 g/dl (32.0-36.5); MEAN CORPUSCULAR VOLUME 86.2 fl (80.0-96.0); PLATELET COUNT, AUTOMATED 329 10^3/uL (150-450); RED BLOOD COUNT 4.58 10^6/uL (4.30-6.10); WHITE BLOOD COUNT 9.9 10^3/uL (4.0-10.0)
== END ==
LOC: M SFHCADAM 09:22
PROVIDERS: ATTEND Family Medicine
DX: E53.8 Deficiency of other specified B group vitamins (principal)

== ENCOUNTER 2023-11-29 15:51 | Emergency (ER) | payer MEDICARE ==
[~2023-11-29] VITALS: Ht 175.3 cm; Wt 86.4 kg
[2023-11-29] MEDS: NS 1,000 ML IV ONE ×2 (16:35→17:25)
[2023-11-29 16:41] LABS: VENOUS BASE EXCESS -1.6 (-2.0-2.0); VENOUS HCO3 21.5 MMOL/L (23.0-27.0); VENOUS PARTIAL PRESSURE CO2 31.8 mmHg (38.0-50.0); VENOUS PARTIAL PRESSURE O2 21.7 mmHg (30.0-50.0); VENOUS PH 7.447 UNITS (7.330-7.430); VENOUS STANDARD HCO3 21.8 MMOL/L; VENOUS TOTAL CO2 22.4 MMOL/L (24.0-28.0)
[2023-11-29 16:45] LABS: BASO % 0.2 % (0.0-1.0); EOS % 0.1 % (0.0-3.0); HEMATOCRIT 40.5 % (42.0-52.0); HEMOGLOBIN 14.1 g/dl (13.5-17.5); LYMPH # 1.3 10^3/uL (1.5-5.0); LYMPH % 13.5 % (24.0-44.0); MEAN CORPUSCULAR HEMOGLOBIN 28.3 pg (27.0-33.0); MEAN CORPUSCULAR HGB CONC 34.8 g/dl (32.0-36.5); MEAN CORPUSCULAR VOLUME 81.2 fl (80.0-96.0); MONO # 0.8 10^3/uL (0.0-0.8); MONO % 7.9 % (2.0-8.0); NEUTROPHILS # 7.4 10^3/uL (1.5-8.5); NEUTROPHILS % 77.8 % (36.0-66.0); PLATELET COUNT, AUTOMATED 293 10^3/uL (150-450); RED BLOOD COUNT 4.99 10^6/uL (4.30-6.10); WHITE BLOOD COUNT 9.5 10^3/uL (4.0-10.0)
[2023-11-29 17:14] LABS: OSMOLALITY SERUM 287 MOSM/KG (280-301)
[2023-11-29 17:18] LABS: LIPASE 29 U/L (12-53)
[2023-11-29 17:20] LABS: ACETONE/KETONE 0.48 MMOL/L (0.02-0.27); ALBUMIN 3.7 G/DL (3.2-5.2); ALKALINE PHOSPHATASE 183 U/L (46-116); ALT/SGPT 60 U/L (7.0-40); AST/SGOT 40 U/L (<34); BILIRUBIN,DIRECT 0.4 MG/DL (<0.4); BLOOD UREA NITROGEN 25 MG/DL (9-23); CALCIUM LEVEL 7.9 MG/DL (8.3-10.6); CARBON DIOXIDE LEVEL 26 MMOL/L (20-31); CHLORIDE LEVEL 97 MMOL/L (98-107); CK-MB VALUE MASS < 1.0 NG/ML (<3.6); CREATININE FOR GFR 1.29 MG/DL (0.70-1.30); GLUCOSE, FASTING 152 MG/DL (74-106); MAGNESIUM LEVEL 2.1 MG/DL (1.8-2.4); POTASSIUM SERUM 4.3 MMOL/L (3.5-5.1); SODIUM LEVEL 128 MMOL/L (136-145); TOTAL PROTEIN 7.4 G/DL (5.7-8.2)
[2023-11-29 17:21] LABS: HEMOGLOBIN A1c 7.7 % (4.0-6.0)
[2023-11-29 17:31] LABS: CPK CREATINE PHOSPHOKINASE 155 U/L (46-171); MB/CK RELATIVE INDEX 0.64 (< OR =4)
[2023-11-29] MEDS ORDERED: ISOVUE-370 76% 100ML VIAL As Ordered ONE (18:06)
[2023-11-29 18:08] LABS: CK-MB VALUE MASS < 1.0 NG/ML (<3.6)
[2023-11-29 18:09] LABS: CPK CREATINE PHOSPHOKINASE 129 U/L (46-171); MB/CK RELATIVE INDEX 0.77 (< OR =4)
[2023-11-29 19:15] VITALS: TEMP 98
[2023-11-29] MEDS: PANTOPRAZOLE 40MG VIAL IV ONE (19:42)
[2023-11-29] MEDS: SUCRALFATE SUSP 1GM/10ML UD PO ONE (19:42)
[2023-11-29 19:49] LABS: VENOUS BASE EXCESS -3.1 (-2.0-2.0); VENOUS PARTIAL PRESSURE CO2 34.7 mmHg (38.0-50.0); VENOUS PARTIAL PRESSURE O2 110.3 mmHg (30.0-50.0); VENOUS TOTAL CO2 22.1 MMOL/L (24.0-28.0)
[2023-11-29] MEDS: MAALOX 30 ML SUSP *UDC PO ONE (20:11)
[2023-11-29] MEDS: LIDOCAINE VISCOUS 2% SOLN 15ML UDC PO ONE (20:11)
[2023-11-29 20:16] LABS: BLOOD UREA NITROGEN 25 MG/DL (9-23); CALCIUM LEVEL 7.5 MG/DL (8.3-10.6); CARBON DIOXIDE LEVEL 22 MMOL/L (20-31); CHLORIDE LEVEL 102 MMOL/L (98-107); GLOMERULAR FILTRATION RATE > 60.0 (>42); GLUCOSE, FASTING 140 MG/DL (74-106); POTASSIUM SERUM 3.7 MMOL/L (3.5-5.1); SODIUM LEVEL 130 MMOL/L (136-145)
[2023-11-29 20:24] VITALS: BP 122/74; O2SAT 96
[2023-11-29] MEDS ORDERED: ONDA-282 PO (20:27)
== END 2023-11-29 20:39 | disposition home or self-care (01) ==
LOC: M ED 15:51
DX: U07.1 COVID-19 (principal); R11.0 Nausea; I45.10 Unspecified right bundle-branch block; E11.9 Type 2 diabetes mellitus without complications; I10 Essential (primary) hypertension; F32.A Depression, unspecified; F17.210 Nicotine dependence, cigarettes, uncomplicated; Z79.1 Long term (current) use of non-steroidal anti-inflammatories (NSAID); Z79.51 Long term (current) use of inhaled steroids; Z79.4 Long term (current) use of insulin; Z79.84 Long term (current) use of oral hypoglycemic drugs; Z79.899 Other long term (current) drug therapy
CPT/HCPCS: 70450; 71045; 71275; 74174; 80048; 80076; 81001; 82010; 82550; 82553; 82803; 83036; 83690; 83735; 83930; 84484; 85025; 87040; 87486; 87581; 87633; 87798; 93005; 93041; 94760; 96374; 99285; J2470; Q9967

== ENCOUNTER 2024-05-15 17:13 | Emergency (ER) | payer MEDICARE ==
[~2024-05-15] VITALS: Ht 175.3 cm; Wt 100.2 kg
[~2024-05-15 17:13] MED LIST changes: -BAYE325T12 PO; +BAYE325T2 PO; +ONDA-282 PO
[2024-05-15 18:03] LABS: HEMATOCRIT 42.1 % (42.0-52.0); HEMOGLOBIN 14.3 g/dl (13.5-17.5); MEAN CORPUSCULAR HEMOGLOBIN 29.1 pg (27.0-33.0); MEAN CORPUSCULAR VOLUME 85.6 fl (80.0-96.0); PLATELET COUNT, AUTOMATED 350 10^3/uL (150-450); RED BLOOD COUNT 4.92 10^6/uL (4.30-6.10); WHITE BLOOD COUNT 10.1 10^3/uL (4.0-10.0)
[2024-05-15] MEDS: LORazepam 1 MG TAB PO STA (18:23)
[2024-05-15 18:30] LABS: AMPHETAMINES LEVEL URINE NEGATIVE (NEGATIVE); BARBITURATES URINE NEGATIVE (NEGATIVE); BENZODIAZEPINES URINE NEGATIVE (NEGATIVE); CANNABINOIDS URINE NEGATIVE (NEGATIVE); COCAINE METABOLITE URINE NEGATIVE (NEGATIVE); METHADONE URINE NEGATIVE (NEGATIVE); OPIATES URINE NEGATIVE (NEGATIVE); PHENCYCLIDINE URINE NEGATIVE (NEGATIVE)
[2024-05-15 18:32] LABS: ETHYL ALCOHOL (ETHANOL) < 0.003 % (0.000-0.010)
[2024-05-15 18:33] LABS: SALICYLATE LEVEL < 3.0 MG/DL (<30)
[2024-05-15 18:34] LABS: ALBUMIN 3.6 G/DL (3.2-5.2); ALKALINE PHOSPHATASE 158 U/L (40-129); ALT/SGPT 25 U/L (7.0-40); AST/SGOT 13 U/L (<34); BILIRUBIN,DIRECT 0.3 MG/DL (<0.4); BILIRUBIN,TOTAL 0.7 MG/DL (0.3-1.2); BLOOD UREA NITROGEN 7 MG/DL (9-23); CALCIUM LEVEL 8.3 MG/DL (8.3-10.6); CARBON DIOXIDE LEVEL 24 MMOL/L (20-31); CHLORIDE LEVEL 106 MMOL/L (98-107); CREATININE FOR GFR 0.71 MG/DL (0.70-1.30); GLOMERULAR FILTRATION RATE > 60.0 (>42); GLUCOSE, FASTING 165 MG/DL (74-106); POTASSIUM SERUM 4.1 MMOL/L (3.5-5.1); SODIUM LEVEL 139 MMOL/L (136-145); TOTAL PROTEIN 7.3 G/DL (5.7-8.2)
[2024-05-15 18:36] LABS: THYROID STIMULATING HORMONE 4.219 uIU/ML (0.55-4.78)
[2024-05-15] MEDS ORDERED: LISI30TA4 PO (19:19)
[2024-05-15] MEDS ORDERED: PANT40TA29 PO (19:19)
[2024-05-15] MEDS ORDERED: INSUDET INJ (19:19)
[2024-05-15] MEDS ORDERED: HOME MED LIST COMPLETE! XX SCH (19:20)
[2024-05-15] MEDS: ATORVASTATIN 10 MG TAB PO SCH (21:19)
[2024-05-15] MEDS: LanTUS (INSULIN GLARGINE INJ) 1 UNITS/0.01 ML SC SCH (21:19)
[2024-05-16] MEDS: HALOPERIDOL LACTATE 5MG/ML VIAL IM ONE (01:39)
[2024-05-16] MEDS: PANTOPRAZOLE 40MG TAB (PROTONIX) PO SCH (09:00)
[2024-05-16 14:10] VITALS: BP 132/96; TEMP 97.6; O2SAT 100
== END 2024-05-16 14:34 | disposition home or self-care (01) ==
LOC: M ED 17:13
DX: F39 Unspecified mood [affective] disorder (principal); E11.9 Type 2 diabetes mellitus without complications; I10 Essential (primary) hypertension; G47.33 Obstructive sleep apnea (adult) (pediatric); Z79.4 Long term (current) use of insulin; Z79.899 Other long term (current) drug therapy
CPT/HCPCS: 80048; 80076; 80143; 80307; 82077; 84443; 85027; 96372; 99284; J1630; J1815

== ENCOUNTER 2024-11-14 15:09 | Emergency (ER) | payer MEDICARE ==
[~2024-11-14] VITALS: Ht 175.3 cm; Wt 92.9 kg
[~2024-11-14 15:09] MED LIST changes: +INSUDET INJ; +LISI30TA4 PO; +PANT40TA29 PO; +SENN-225 PO; -SENO8.6T5 PO
[2024-11-14 15:25] VITALS: TEMP 96.7
[2024-11-14 16:08] LABS: BASO # 0.1 10^3/uL (0.0-0.2); BASO % 0.6 % (0.0-1.0); EOS # 0.5 10^3/uL (0.0-0.5); EOS % 3.7 % (0.0-3.0); LYMPH # 2.3 10^3/uL (1.5-5.0); LYMPH % 18.6 % (24.0-44.0); MONO # 1.0 10^3/uL (0.0-0.8); MONO % 7.7 % (2.0-8.0); NEUTROPHILS # 8.5 10^3/uL (1.5-8.5); NEUTROPHILS % 68.5 % (36.0-66.0); PLATELET COUNT, AUTOMATED 379 10^3/uL (150-450)
[2024-11-14 16:20] LABS: ERYTHROCYTE SEDIMENTATION RATE 90 mm/hr (0-20)
[2024-11-14 16:23] LABS: INR 0.97
[2024-11-14 16:27] LABS: C REACTIVE PROTEIN QUANTITATIV 1.64 MG/DL (<1.0)
[2024-11-14 16:32] VITALS: BP 144/77
[2024-11-14] MEDS: MORPHINE 4 MG/ML 1 ML VIAL IV PRN (16:32)
[2024-11-14 16:36] LABS: ALT/SGPT 14 U/L (7.0-40); AST/SGOT 16 U/L (<34); CARBON DIOXIDE LEVEL 26 MMOL/L (20-31); CHLORIDE LEVEL 100 MMOL/L (98-107); CREATININE FOR GFR 0.78 MG/DL (0.70-1.30); GLOMERULAR FILTRATION RATE > 90.0 (>42); POTASSIUM SERUM 4.3 MMOL/L (3.5-5.1); SODIUM LEVEL 139 MMOL/L (136-145)
[2024-11-14] MEDS: ONDANSETRON 4MG 2ML VIAL IV ONE (16:44)
[2024-11-14] MEDS: VANCOMYCIN HCL 2,000 MG, VIAL MATE ADAPTER 1 EACH in NS 500 ML IV ONE (16:45)
[2024-11-14 16:55] LABS: CALCIUM LEVEL 8.9 MG/DL (8.3-10.6)
[2024-11-14 17:45] VITALS: O2SAT 99
[2024-11-14] MEDS: PIPERACILLIN/TAZOBACTAM SOD 3.375 GM in DEXTROSE 5% (D5W) ADV/MINI-BAG 50 ML IV ONE (19:03)
== END 2024-11-14 19:05 | disposition short-term general hospital (02) ==
LOC: M ED 15:09 → EDBD 15:09 → EEVIPCON 15:09 → M ED 19:05
DX: M86.171 Other acute osteomyelitis, right ankle and foot (principal); L03.115 Cellulitis of right lower limb; E11.9 Type 2 diabetes mellitus without complications; I10 Essential (primary) hypertension; F02.80 Dementia in other diseases classified elsewhere, unspecified severity, without behavioral disturbance, psychotic disturbance, mood disturbance, and anxiety; F25.9 Schizoaffective disorder, unspecified; Z79.4 Long term (current) use of insulin; Z79.899 Other long term (current) drug therapy
CPT/HCPCS: 73630; 80048; 80076; 83605; 84145; 85025; 85610; 85652; 86140; 87040; 87070; 87077; 87186; 87205; 96374; 96375; 99284; J2060; J2405; J2543; J3374